=== PATIENT | male | born 1985 | race Caucasian/White ===

== ENCOUNTER 2017-10-31 23:25 | Emergency (ER) | payer MEDICAID, OTHER ==
[~2017-10-31] VITALS: Ht 188 cm; Wt 88.5 kg
[2017-11-01] MEDS ORDERED: ONDANSETRON HCL 4 MG/2 ML VIAL IV ONE ×4 (01:00→03:45)
[2017-11-01] MEDS ORDERED: MORPHINE SULFATE 4 MG/ML SYR/VIAL IV ONE ×2 (01:00→02:15)
[2017-11-01] MEDS ORDERED: MORPHINE SULF INJ 2 MG/ML SYRINGE 1ML IV ONE (02:00)
[2017-11-01] MEDS ORDERED: cefTRIAXone 1GM/10ml IVPUSH 10 ML IV ONE (02:00)
[2017-11-01] MEDS ORDERED: IOHEXOL 350 MG/ML 100ML IJ ONE (02:22)
[2017-11-01 03:29] LABS: Urine WBC None Seen /hpf (0 - 3)
[2017-11-01] MEDS ORDERED: MEPERIDINE HCL (50 MG/ML) 1 ML VIAL IV ONE ×2 (03:45)
[2017-11-01 03:47] LABS: Basophils # (auto) 0 uL; Basophils % (auto) 0.1 % (0.0-2.0); Eosinophils # (auto) 0 uL; Eosinophils % (auto) 0.1 % (0.0-7.0); Hematocrit 46.6 % (41.0-53.0); Hemoglobin 15.9 g/dL (13.5-17.5); Lymphocytes # (auto) 0.9 uL; Lymphocytes % (auto) 5.4 % (10.0-50.0); Mean Corpuscular Hemoglobin 31.5 pg (28.0-32.0); Mean Corpuscular Hgb Conc. 34.1 g/dL (32.0-36.0); Mean Corpuscular Volume 92.2 fL (80.0-100.0); Monocytes # (auto) 0.7 uL; Monocytes % (auto) 3.9 % (0.0-12.0); Neutrophils # (auto) 15.5 uL; Neutrophils % (auto) 90.5 % (37.0-80.0); Platelet Count (auto) 241 10^3/uL (140-450); Red Blood Cells 5.05 10^6/uL (4.5-5.90); Red Cell Distribution Width 13.7 % (11.8-14.3); White Blood Cell 17.1 10^3/uL (4.4-10.8)
[2017-11-01 03:47] LABS: Urine Bacteria NONE SEEN /hpf (None Seen); Urine Blood Negative /uL (Negative); Urine Specific Gravity 1.002 (1.001-1.035)
[2017-11-01 03:55] LABS: INR 0.99 (0.9-1.15); Partial Thromboplastin Time 25.6 sec (23.78-33.04); Prothrombin Time 10.6 sec (9.27-12.13)
[2017-11-01 04:10] LABS: BUN/Creatinine Ratio 12.4; Calcium 8.4 mg/dL (8.5-10.1)
[2017-11-01 04:14] LABS: Bilirubin, Total 1.3 mg/dL (0.2-1.0); Total Protein 7.8 g/dL (6.4-8.2)
[2017-11-01 04:50] VITALS: BP 164/109
== END 2017-11-01 04:50 | disposition short-term general hospital (02) ==
LOC: EDBD 23:25 → ER 23:30
DX: S02.19XA Other fracture of base of skull, initial encounter for closed fracture (principal); S12.090A Other displaced fracture of first cervical vertebra, initial encounter for closed fracture; R58 Hemorrhage, not elsewhere classified; F17.210 Nicotine dependence, cigarettes, uncomplicated; Y08.89XA Assault by other specified means, initial encounter; Y93.89 Activity, other specified; Y99.0 Civilian activity done for income or pay; Y92.89 Other specified places as the place of occurrence of the external cause
CPT/HCPCS: 36415; 70450; 70498; 71045; 72125; 80053; 81001; 85025; 85610; 85730; 93005; 96374; 96375; 96376; 99285; J0696; J2175; J2270; J2405; L0120; Q9967

== ENCOUNTER 2017-11-21 13:29 | Emergency (ER) | payer OTHER ==
[~2017-11-21] VITALS: Ht 188 cm; Wt 97.5 kg
[2017-11-21 14:58] LABS: Basophils # (auto) 0 uL; Basophils % (auto) 0.4 % (0.0-2.0); Eosinophils # (auto) 0.1 uL; Eosinophils % (auto) 1.1 % (0.0-7.0); Hematocrit 48.2 % (41.0-53.0); Hemoglobin 16.4 g/dL (13.5-17.5); Lymphocytes # (auto) 1.9 uL; Lymphocytes % (auto) 24.1 % (10.0-50.0); Mean Corpuscular Hemoglobin 31.8 pg (28.0-32.0); Mean Corpuscular Hgb Conc. 34.1 g/dL (32.0-36.0); Mean Corpuscular Volume 93.2 fL (80.0-100.0); Monocytes # (auto) 0.6 uL; Monocytes % (auto) 7.8 % (0.0-12.0); Neutrophils # (auto) 5.1 uL; Neutrophils % (auto) 66.6 % (37.0-80.0); Nucleated Red Blood Cells % 0.1 %; Platelet Count (auto) 325 10^3/uL (140-450); Red Blood Cells 5.17 10^6/uL (4.5-5.90); Red Cell Distribution Width 13.2 % (11.8-14.3); White Blood Cell 7.7 10^3/uL (4.4-10.8)
[2017-11-21 15:15] LABS: INR 0.94 (0.9-1.15); Partial Thromboplastin Time 27.8 sec (23.78-33.04); Prothrombin Time 10.1 sec (9.27-12.13)
[2017-11-21] MEDS: methylPREDNISolone SOD SUCC 125 MG/2 ML VL IM ONE (15:33)
[2017-11-21] MEDS: cloNIDine HCL 0.1 MG TAB PO ONE (15:33)
[2017-11-21 16:09] VITALS: BP 143/99
== END 2017-11-21 16:26 | disposition home or self-care (01) ==
LOC: ER 13:35
DX: R22.0 Localized swelling, mass and lump, head (principal); T39.1X5A Adverse effect of 4-Aminophenol derivatives, initial encounter; T39.315A Adverse effect of propionic acid derivatives, initial encounter; T42.8X5A Adverse effect of antiparkinsonism drugs and other central muscle-tone depressants, initial encounter; T40.4X5A Adverse effect of other synthetic narcotics, initial encounter; F17.210 Nicotine dependence, cigarettes, uncomplicated; Y92.89 Other specified places as the place of occurrence of the external cause
CPT/HCPCS: 36415; 70450; 85025; 85610; 85730; 94761; 96372; 99285; J2930